=== PATIENT | female | born 1980 | race Caucasian/White ===

== ENCOUNTER 2022-02-14 14:56 | Inpatient (IN) ==
[2022-02-14] MEDS ORDERED: LACTATED RINGERS 500 ML IV PRN (15:44)
[2022-02-14] MEDS ORDERED: METHYLERGONOVINE 0.2 MG/1 ML AMP IM PRN (15:44)
[2022-02-14] MEDS ORDERED: CARBOPROST TROMETHAMINE 250 MCG/ML AMP IM PRN (15:44)
[2022-02-14] MEDS ORDERED: miSOPROStoL 200 MCG TABLET RECTAL PRN (15:44)
[2022-02-14] MEDS ORDERED: MEPERIDINE 50 MG/1 ML VIAL IM PRN (15:44)
[2022-02-14] MEDS ORDERED: TRANEXAMIC ACID 1,000 MG in SODIUM CHLORIDE 0.9% 100 ML IV PRN (15:44)
[2022-02-14] MEDS ORDERED: OXYTOCIN/LR 20 UNIT/1,000 ML BAG IV ONE (15:44)
[2022-02-14] MEDS ORDERED: DINOPROSTONE 10 MG VAG.INSERT VAG ONE (15:50)
[2022-02-14 16:12] LABS: Basophils % 0.3 % (0.0-0.8); Eosinophils # 0.1 10*3/uL (0.0-0.87); Eosinophils % 0.9 % (0.00-10.9); Hematocrit 33.9 VOL% (35.7-47.0); Hemoglobin 11.1 GM/DL (12.0-16.0); Immature Granulocytes % 0.8 %; Immature Granulocytes Absolute 0.06 #; Lymphocytes # 1.7 10*3/uL (1.4-4.0); Lymphocytes % 21.2 % (21.3-54.2); Mean Corpuscular HGB Conc 32.7 GM/DL (32-36); Mean Corpuscular Volume 91.4 FL (87-102); Monocytes # 0.4 10*3/uL (0.11-0.8); Neutrophils % 71.8 % (38.7-73.9); Platelet Count 245 T/CUMM (130-400); Red Blood Count 3.71 MC/CUMM (3.8-5.5); Red Cell Distribution Width 13.3 % (9.3-17.3); White Blood Count 7.8 T/CUMM (4-12)
[2022-02-14] MEDS: LACTATED RINGERS 1,000 ML IV PRN (16:20)
[2022-02-14 16:26] LABS: INR 0.8; PT Patient Result 9.3 SECS (10.1-12.1); Partial Thromboplastin Time 25.6 SECS (23.7-32.9)
[2022-02-14 16:34] LABS: Alanine Aminotransferase 15 U/L (13-56); Albumin 2.5 G/DL (3.4-5.0); Alkaline Phosphatase 111 U/L (45-117); Aspartate Amino Transferase 13 U/L (0-37); Bilirubin,Direct < 0.100 MG/DL (0.0-0.20); Bilirubin,Total < 0.39 MG/DL (0.20-1.00); Blood Urea Nitrogen 9 MG/DL (7-18); Calcium 8.5 MG/DL (8.5-10.1); Carbon Dioxide 22 MMOL/L (21-32); Chloride 107 MMOL/L (98-107); Glucose 129 MG/DL (74-106); Osmolality,Calculated 273.8 MOS/KG (273-304); Potassium 4.2 MMOL/L (3.5-5.1); Sodium 137 MMOL/L (136-145); Total Protein 5.6 G/DL (6.4-8.2)
[2022-02-14 16:49] LABS: Hepatitis B Surface Ag Quant < 0.10 Index; Hepatitis B Surface Ag Result Non-Reactive (NonReactive)
[2022-02-14 17:08] LABS: Protein/Creatinine Ratio,Urine 0.3 RATIO
[2022-02-14] MEDS ORDERED: ZALEPLON 5 MG CAPSULE PO PRN (19:57)
[2022-02-15] MEDS: ONDANSETRON 4 MG/2 ML VIAL IV PRN ×2 (02:48→15:37)
[2022-02-15] MEDS: BUTORPHANOL 1 MG/ML VIAL IV PRN ×3 (02:51→15:31)
[2022-02-15] MEDS ORDERED: OXYTOCIN/LR 20 UNIT/1,000 ML BAG IV SCH (09:45)
[2022-02-15] MEDS ORDERED: BUTORPHANOL 2 MG/ML VIAL IV PRN (09:58)
[2022-02-15] MEDS: LACTATED RINGERS 1,000 ML IV PRN ×2 (11:46→18:36)
[2022-02-15] MEDS ORDERED: ePHEDrine 50 MG/ML VIAL IV PRN (12:49)
[2022-02-15] MEDS ORDERED: LACTATED RINGERS 1,000 ML IV ONE (12:49)
[2022-02-15] MEDS ORDERED: NALOXONE 0.4 MG/ML VIAL IV PRN (13:05)
[2022-02-15] MEDS ORDERED: CITRIC ACID/SODIUM CITRATE 30 ML UDCUP PO ONE (13:05)
[2022-02-15] MEDS ORDERED: FAMOTIDINE 20 MG/2 ML VIAL IV ONE (13:05)
[2022-02-15] MEDS: fentaNYL 2 MCG/ROPIV 0.2% EPID 100 ML EPIDURAL SCH (17:27)
[2022-02-15 18:37] LABS: Glucose,Urine (UA) Negative (Negative); Ketones,Urine 40 mg/dL (Negative); Mucus,Urine Occasional /LPF (Occasional); Protein,Urine Negative (Negative); RBC,Urine <1 /HPF (0-4); Squamous Epithelial Cell,Urine Occasional /HPF (0-10); Urine Appearance Clear (Clear); Urine Color Yellow (Yellow); Urine Specific Gravity 1.015 (1.001-1.035)
[2022-02-15 18:38] LABS: Bilirubin,Urine Negative (Negative); Blood, Urine Negative (Negative); Nitrite,Urine Negative (Negative); Urine Urobilinogen 0.2 eU/dL (<2.0)
[2022-02-15] MEDS: ACETAMINOPHEN 500 MG TABLET PO PRN (21:39)
[2022-02-16] MEDS: fentaNYL 2 MCG/ROPIV 0.2% EPID 100 ML EPIDURAL SCH ×2 (01:27→10:05)
[2022-02-16] MEDS: ACETAMINOPHEN 500 MG TABLET PO PRN ×2 (06:59→07:13)
[2022-02-16] MEDS ORDERED: SODIUM CHLORIDE 0.9% 0 ML IV ONE (09:57)
[2022-02-16] MEDS ORDERED: HYDROCORTISONE 2.5% RECTAL CREAM 30 GM TUBE TOP PRN (11:01)
[2022-02-16] MEDS ORDERED: oxyCODONE/ACETAMINOPHEN 5-325 MG TABLET PO PRN (11:01)
[2022-02-16] MEDS ORDERED: BENZOCAINE 20%/MENTHOL 0.5% SPRAY 56 GM CAN TOP PRN (11:01)
[2022-02-16] MEDS ORDERED: BISACODYL 10 MG SUPP RECTAL PRN (11:01)
[2022-02-16] MEDS ORDERED: ONDANSETRON 4 MG/2 ML VIAL IV PRN (11:01)
[2022-02-16] MEDS ORDERED: RHO(D) IMMUNE GLOBULIN 300 MCG SYRINGE IM ONE (11:01)
[2022-02-16] MEDS ORDERED: ACETAMINOPHEN 325 MG TABLET PO PRN (11:01)
[2022-02-16] MEDS ORDERED: DIPH/TET/ACEL PERT BOOSTER VACCINE 0.5 ML VIAL IM ONE (11:01)
[2022-02-16] MEDS ORDERED: OXYTOCIN/LR 20 UNIT/1,000 ML BAG IV ONE (11:01)
[2022-02-16] MEDS ORDERED: MEASLES/MUMPS/RUBELLA VACCINE 0.5 ML VIAL SUBCUT ONE (11:01)
[2022-02-16] MEDS ORDERED: WITCH HAZEL PADS 100/JAR TOP PRN (11:01)
[2022-02-16] MEDS ORDERED: LANOLIN 50% CREAM 0.3 OZ TUBE TOP PRN (11:01)
[2022-02-16 11:08] LABS: Cord Venous Blood HCO3 22.1 MMOL/L; Cord Venous Blood PCO2 44.4 MMHG
[2022-02-16] MEDS: oxyCODONE/ACETAMINOPHEN 5-325 MG TABLET PO PRN ×2 (16:10→22:45)
[2022-02-16] MEDS: IBUPROFEN 800 MG TABLET PO PRN (20:12)
[2022-02-16] MEDS: DOCUSATE SODIUM 100 MG CAPSULE PO SCH (21:20)
[2022-02-17] MEDS: IBUPROFEN 800 MG TABLET PO PRN ×3 (02:05→18:18)
[2022-02-17] MEDS: oxyCODONE/ACETAMINOPHEN 5-325 MG TABLET PO PRN ×2 (04:30→10:49)
[2022-02-17 05:55] LABS: Basophils % 0.2 % (0.0-0.8); Eosinophils # 0.1 10*3/uL (0.0-0.87); Eosinophils % 0.8 % (0.00-10.9); Hematocrit 31.1 VOL% (35.7-47.0); Hemoglobin 10.1 GM/DL (12.0-16.0); Immature Granulocytes % 0.8 %; Immature Granulocytes Absolute 0.09 #; Lymphocytes # 2.7 10*3/uL (1.4-4.0); Lymphocytes % 24.6 % (21.3-54.2); Mean Corpuscular HGB Conc 32.5 GM/DL (32-36); Mean Corpuscular Volume 92.3 FL (87-102); Monocytes # 0.5 10*3/uL (0.11-0.8); Monocytes % 4.6 % (1.7-12.7); Platelet Count 241 T/CUMM (130-400); Red Blood Count 3.37 MC/CUMM (3.8-5.5); Red Cell Distribution Width 13.3 % (9.3-17.3); White Blood Count 10.9 T/CUMM (4-12)
[2022-02-17] MEDS: PANTOPRAZOLE 20 MG TABLET PO SCH (08:58)
[2022-02-17] MEDS: DOCUSATE SODIUM 100 MG CAPSULE PO SCH ×2 (08:58→21:08)
[2022-02-17] MEDS: MULTIVITAMIN (PRENATAL) TABLET PO SCH (08:58)
[2022-02-17] MEDS: MAGNESIUM HYDROXIDE SUSP 30 ML UDCUP PO PRN (21:10)
[2022-02-18] MEDS: oxyCODONE/ACETAMINOPHEN 5-325 MG TABLET PO PRN ×3 (00:16→14:17)
[2022-02-18] MEDS: DOCUSATE SODIUM 100 MG CAPSULE PO SCH ×2 (08:28→20:58)
[2022-02-18] MEDS: MULTIVITAMIN (PRENATAL) TABLET PO SCH (08:28)
[2022-02-18] MEDS: PANTOPRAZOLE 20 MG TABLET PO SCH (08:28)
[2022-02-18] MEDS: MAGNESIUM HYDROXIDE SUSP 30 ML UDCUP PO PRN (20:59)
[2022-02-18] MEDS ORDERED: KETOROLAC 10 MG TABLET PO ONE (22:09)
[2022-02-19] MEDS: oxyCODONE/ACETAMINOPHEN 5-325 MG TABLET PO PRN (01:45)
[2022-02-19 07:54] VITALS: BP 131/80
[2022-02-19] MEDS: MULTIVITAMIN (PRENATAL) TABLET PO SCH (09:25)
[2022-02-19] MEDS: DOCUSATE SODIUM 100 MG CAPSULE PO SCH (09:25)
[2022-02-19] MEDS: PANTOPRAZOLE 20 MG TABLET PO SCH (09:25)
[2022-02-19] MEDS: MAGNESIUM HYDROXIDE SUSP 30 ML UDCUP PO PRN (09:25)
== END 2022-02-19 11:51 | disposition home or self-care (01) | DRG 807 ==
LOC: N.LDOUT 14:56 → N.LD 14:59 → N.OB 02-16 13:10
PROVIDERS: ADMIT Obstetrics & Gynecology; ATTEND Obstetrics & Gynecology